=== PATIENT | female | born 1975 | race Caucasian/White ===

== ENCOUNTER 2021-05-17 13:15 | Emergency (ER) | payer OTHER ==
[~2021-05-17] VITALS: Ht 170.2 cm; Wt 90.7 kg
[2021-05-17] MEDS ORDERED: Cyclobenzaprine5 MG PO (14:09)
[2021-05-17] MEDS ORDERED: IBUP800 PO (14:09)
[2021-05-30] MEDS ORDERED: BP MEDS (16:14)
[2021-05-30] MEDS ORDERED: Robaxin750 MG PO (17:15)
== END 2021-05-17 14:17 | disposition home or self-care (01) ==
LOC: ER 13:15
DX: G89.29 Other chronic pain (principal); M54.5 Low back pain; Z88.0 Allergy status to penicillin
CPT/HCPCS: 96372; 99283; J1885

== ENCOUNTER 2021-07-07 12:01 | Day surgery (SDC) | payer OTHER ==
[~2021-07-07] VITALS: Ht 170.2 cm; Wt 97.1 kg
[~2021-07-07 12:01] MED LIST: BP MEDS; Cyclobenzaprine5 MG PO; IBUP800 PO; Robaxin750 MG PO
[2021-07-07] MEDS ORDERED: LOSA50 PO (12:27)
[2021-07-07] MEDS ORDERED: MICROZIDE12.5 M1 PO (12:27)
[2021-07-07] MEDS ORDERED: IBUP400 PO (12:28)
[2021-07-07] MEDS ORDERED: ATOR80 PO (12:28)
[2021-07-07] MEDS ORDERED: OMEPRAZOLE20 MG PO (12:29)
[2021-07-07] MEDS ORDERED: TRAZ50 PO (12:29)
[2021-07-07] MEDS ORDERED: ASPI325 PO (13:13)
--- NOTE | 2021-07-07 13:59 | NUR ---
07/07/[address] NOTIFIED OF ASA [address] WALLER OKAY TO PROCEED.
== END 2021-07-07 13:58 | disposition home or self-care (01) ==
LOC: ORSCSDS 12:01
PROVIDERS: Anesthesiology
PROC: 3E0R33Z Introduction of Anti-inflammatory into Spinal Canal, Percutaneous Approach (ICD-10-PCS; principal; 2021-07-07 13:00)
DX: M51.16 Intervertebral disc disorders with radiculopathy, lumbar region (principal); I10 Essential (primary) hypertension; E78.00 Pure hypercholesterolemia, unspecified; K21.9 Gastro-esophageal reflux disease without esophagitis; E66.9 Obesity, unspecified; Z68.33 Body mass index [BMI] 33.0-33.9, adult; Z79.82 Long term (current) use of aspirin; Z79.899 Other long term (current) drug therapy
CPT/HCPCS: J1040

== ENCOUNTER 2021-08-28 10:50 | Day surgery (SDC) | payer OTHER ==
[~2021-08-28] VITALS: Ht 170.2 cm; Wt 97.3 kg
[~2021-08-28 10:50] MED LIST changes: +ASPI325 PO; +ATOR80 PO; +IBUP400 PO; +LOSA50 PO; +MICROZIDE12.5 M1 PO; +OMEPRAZOLE20 MG PO; +TRAZ50 PO
[2021-08-28] MEDS ORDERED: ZANAFLEX4 M8 PO (11:07)
[2021-08-28] MEDS ORDERED: GABA100 PO (11:07)
== END 2021-08-28 12:00 | disposition home or self-care (01) ==
LOC: ORSCSDS 10:50
PROVIDERS: Anesthesiology
PROC: 3E0R33Z Introduction of Anti-inflammatory into Spinal Canal, Percutaneous Approach (ICD-10-PCS; principal; 2021-08-28 11:45)
DX: M54.16 Radiculopathy, lumbar region (principal); I10 Essential (primary) hypertension; E78.00 Pure hypercholesterolemia, unspecified; K21.9 Gastro-esophageal reflux disease without esophagitis; M54.9 Dorsalgia, unspecified; E66.9 Obesity, unspecified; Z68.34 Body mass index [BMI] 34.0-34.9, adult; F17.210 Nicotine dependence, cigarettes, uncomplicated; Z79.899 Other long term (current) drug therapy
CPT/HCPCS: J1040

== ENCOUNTER 2021-12-28 11:25 | Day surgery (SDC) | payer OTHER ==
[~2021-12-28] VITALS: Ht 170.2 cm; Wt 94.7 kg
[~2021-12-28 11:25] MED LIST changes: +CODACE30 PO; +GABA100 PO; +ZANAFLEX4 M8 PO
--- NOTE | 2021-12-28 12:08 | NUR ---
History, Chart, Medications and Allergies reviewed before start of procedure.Patient confirms NPO status and agrees with scheduled surgery. Pre-Op teaching done. Pt verbalizes understanding. Patient States Post-Procedure ride home has been arranged.
--- NOTE | 2021-12-28 13:02 | NUR ---
12/28/21 1302 Nora Rodriguez History, Chart, Medications and Allergies reviewed before start of procedure. Patient confirms NPO status and agrees with scheduled surgery. 3-LEAD EKG REVIEWED WITH PHYSICIAN PRIOR TO START OF PROCEDURE. MONITOR INTACT WITH CONTINUOUS PULSE OXIMETRY AND INTERMITTENT BP. PATIENT DETERMINED TO BE ASA APPROPRIATE FOR PROPOFOL SEDATION PRIOR TO START OF PROCEDURE BY
--- NOTE | 2021-12-28 14:15 | NUR ---
Patient up to Ambulate independently. Gait steady. Discharge instructions reviewed with patient. Patient verbalizes understanding. Copy given to patient to take home. Discharged via wheelchair to private car for ride home.
== END 2021-12-28 22:54 | disposition home or self-care (01) ==
LOC: ORSCMMR 11:25 → ORD 13:00 → ORSCMMR 13:00
PROVIDERS: Surgery
PROC: 0DBK8ZX Excision of Ascending Colon, Via Natural or Artificial Opening Endoscopic, Diagnostic (ICD-10-PCS; principal; 2021-12-28 13:00)
DX: K60.2 Anal fissure, unspecified (principal); K62.5 Hemorrhage of anus and rectum; D12.2 Benign neoplasm of ascending colon; I10 Essential (primary) hypertension; F17.210 Nicotine dependence, cigarettes, uncomplicated; E66.9 Obesity, unspecified; Z68.33 Body mass index [BMI] 33.0-33.9, adult; Z79.899 Other long term (current) drug therapy
CPT/HCPCS: 88305; J2704; J7120